=== PATIENT | female | born 2000 | race African-American/Black ===

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

== ENCOUNTER 2022-07-23 12:16 | Observation (INO) | payer MEDICAID ==
[~2022-07-23] VITALS: Ht 162.6 cm; Wt 76.0 kg
[2022-07-23 13:34] VITALS: BP 126/86
[2022-07-23] MEDS ORDERED: AZIT250T8 PO (14:00)
[2022-07-23] MEDS ORDERED: ACET-1080 PO (14:00)
== END 2022-07-23 16:30 | disposition home or self-care (01) ==
LOC: ER 12:16 → LDRP 14:30 → UNDOADMOB 14:30 → LDRP 14:38 → UNDODISOB 16:30
PROVIDERS: ADMIT Obstetrics & Gynecology; ATTEND Obstetrics & Gynecology
DX: O26.893 Other specified pregnancy related conditions, third trimester (principal); R10.2 Pelvic and perineal pain; O99.513 Diseases of the respiratory system complicating pregnancy, third trimester; J02.9 Acute pharyngitis, unspecified; Z3A.37 37 weeks gestation of pregnancy
CPT/HCPCS: 59025; 81002; 99284; G0378

== ENCOUNTER 2024-03-17 09:08 | Emergency (ER) | payer MEDICAID ==
[~2024-03-17] VITALS: Ht 162.6 cm; Wt 76.8 kg
[~2024-03-17 09:08] MED LIST: ACET-1080 PO; AZIT-185 PO
[2024-03-17 09:45] VITALS: BP 148/57; PULSE 95; RESP 18; TEMP 98; O2SAT 98
== END 2024-03-17 10:17 | disposition home or self-care (01) ==
LOC: ER 09:08
DX: F41.1 Generalized anxiety disorder (principal); Z88.0 Allergy status to penicillin